=== PATIENT | female | born 1985 ===

== ENCOUNTER 2016-12-15 19:59 | Emergency (ER) | payer OTHER ==
[2016-12-15] MEDS ORDERED: ONDANSETRON 4 MG ODT TAB ONE (20:37)
[2016-12-15] MEDS ORDERED: HYDROMORPHONE HCL 2 MG/ML SYRINGE ONE (20:37)
[2016-12-15] MEDS ORDERED: KETOROLAC TROMETHAMINE 60 MG/2 ML VIAL ONE (20:37)
--- NOTE | 2016-12-15 21:01 | RAD ---
Name: ARIC KAUR Exam: Lumbar spine Comparison: None Clinical history: Trauma 2 days ago. Persistent back pain. Initial encounter. Findings: 3 views of the lumbar spine are submitted. Bone density is normal. There is mild asymmetric disc space during to the right at L4-5. Lateral alignment is normal. There is no lytic or blastic lesion or evidence for fracture. As the SI joints are normal. The remainder the bones soft tissues are unremarkable. Impression: 1. Mild asymmetric disc space narrowing to the right at L4-5 2. No acute bony abnormality
== END 2016-12-15 21:46 | disposition home or self-care (01) ==
LOC: ED 19:59
DX: M54.5 Low back pain (principal); W18.2XXA Fall in (into) shower or empty bathtub, initial encounter; Y93.E1 Activity, personal bathing and showering; Y92.002 Bathroom of unspecified non-institutional (private) residence as the place of occurrence of the external cause
CPT/HCPCS: 72100; 99283 ×2; 96372 ×2; J1170; J1885; A9270